=== PATIENT | female | born 1975 | race Caucasian/White ===

== ENCOUNTER 2017-07-17 03:06 | Inpatient (IN) | payer SELFPAY ==
[2017-07-17] MEDS ORDERED: NS 1,000 ML IV ONE ×2 (03:11→04:22)
[2017-07-17] MEDS ORDERED: ONDANSETRON 4 MG/2 ML VIAL IVP ONE (03:11)
[2017-07-17] MEDS ORDERED: HYDROmorphONE/DILAUDID 1 MG/ML INJ IVP ONE ×2 (03:11→05:01)
--- NOTE | 2017-07-17 03:19 | EDPHY ---
H & P Time Seen by Provider: 07/17/17 03:16 HPI/ROS: Chief Complaint: Abdominal pain HPI: This is a 41-year-old woman with a history of irritable bowel disease who is visiting from the . Patient started having abdominal pain about 9 hr ago. Does not have a history of similar pain in the past. It is generalized and severe. Is been associated with some nausea and vomiting. Patient is unable to provide me with any more history. She is writhing in pain and will not answer any more questions. ROS: Unobtainable as the patient is not answering questions PMH: Abdominal tumor removal at 3 months of age, irritable bowel disease Social History: Unknown Family History: non-contributory Physical Exam: Gen: Awake, Alert, writhing in pain, not answering questions HEENT: Nose: no rhinorrhea Eyes: PERRLA, EOMI Mouth: Moist mucosa Neck: Supple, no JVD Chest: nontender, lungs clear to auscultation Heart: S1, S2 normal, no murmur Abd: Large midline abdominal scar consistent with prior laparotomy, diffuse voluntary guarding, no distention Ext: no edema, non-tender Skin: no rash Neuro: CN II-XII intact, Sensation grossly intact, Strength 5/5 in bilateral upper and lower extremities Constitutional: Initial Vital Signs Temperature (C) 36.7 C 07/17/17 03:10 Heart Rate 83 07/17/17 03:10 Respiratory Rate 18 07/17/17 03:10 Blood Pressure 123/68 H 07/17/17 03:10 O2 Sat (%) 95 07/17/17 03:10 O2 Delivery Mode Room Air Allergies/Adverse Reactions: Penicillins Allergy (Verified 07/17/17 03:30) Home Medications: Medication Instructions Recorded Ambien 10 mg 07/17/17 DIAZEPAM 07/17/17 Hydrocodon-Acetaminophen 5-500 07/17/17 Ritalin 20mg (*) 07/17/17 Medical Decision Making - Diagnostics Imaging Results: CT scan consistent with small-bowel obstruction with a transition point in the mid right abdomen just below the umbilicus. There is a transition point just proximal to a decompressed ileum. Study interpreted by Dr. Ordonez. Imaging: Discussed imaging studies w/ rn call center Radiologist ED Course/Re-evaluation: 41-year-old woman present with severe onset of abdominal pain. She has a small bowel obstruction on CT scan. I have discussed with Dr. Meade, general surgery. He will admit the patient to his service for further care. I have ordered an NG tube. Will continue pain meds as needed. - Data Points Laboratory Results: Laboratory Results 07/17/17 03:08 07/17/17 03:08 07/17/17 07/17/17 07/17/17 04:43 03:08 03:08 WBC RBC Hgb Hct MCV MCH MCHC RDW Plt Count MPV Neut % (Auto) Lymph % (Auto) Loving % (Auto) Eos % (Auto) Baso % (Auto) Nucleat RBC Rel Count Absolute Neuts (auto) Absolute Lymphs (auto) Absolute Monos (auto) Absolute Eos (auto) Absolute Basos (auto) Absolute Nucleated RBC Immature Gran % Immature Gran # Sodium 142 mEq/L mEq/L (134-144) Potassium 3.7 mEq/L mEq/L (3.5-5.2) Chloride 101 mEq/L mEq/L (97-110) Carbon Dioxide 26 mEq/l mEq/l (22-31) Anion Gap 15 mEq/L mEq/L (8-16) BUN 19 mg/dL mg/dL (7-23) Creatinine 0.8 mg/dL mg/dL (0.6-1.0) Estimated GFR > 60 Glucose 118 mg/dL H mg/dL (70-100) Calcium 10.3 mg/dL mg/dL (8.5-10.4) Total Bilirubin 1.6 mg/dL H mg/dL (0.1-1.4) AST 25 IU/L IU/L (14-46) ALT 33 IU/L IU/L (9-52) Alkaline Phosphatase 68 IU/L IU/L (38-126) Total Protein 7.5 g/dL g/dL (6.3-8.2) Albumin 4.9 g/dL g/dL (3.5-5.0) Lipase 98 IU/L IU/L (23-300) Beta HCG, Qual NEGATIVE Urine Color YELLOW Urine Appearance HAZY Urine pH 8.0 H (5.0-7.5) Ur Specific [place] > 1.035 H (1.002-1.030) Urine Protein 1+ H (NEGATIVE) Urine Ketones 2+ H (NEGATIVE) Urine Blood NEGATIVE (NEGATIVE) Urine Nitrate NEGATIVE (NEGATIVE) Urine Bilirubin NEGATIVE (NEGATIVE) Urine Urobilinogen NEGATIVE EU EU (0.2-1.0) Ur Leukocyte Esterase NEGATIVE (NEGATIVE) Urine RBC Pending Urine WBC Pending Ur Epithelial Cells Pending Urine Glucose NEGATIVE (NEGATIVE) 07/17/17 03:08 WBC 11.07 10^3/uL H 10^3/uL (3.80-9.50) RBC 4.47 10^6/uL 10^6/uL (4.18-5.33) Hgb 14.7 g/dL g/dL (12.6-16.3) Hct 40.7 % % (38.0-47.0) MCV 91.1 fL fL (81.5-99.8) MCH 32.9 pg pg (27.9-34.1) MCHC 36.1 g/dL g/dL (32.4-36.7) RDW 12.0 % % (11.5-15.2) Plt Count 256 10^3/uL 10^3/uL (150-400) MPV 11.2 fL fL (8.7-11.7) Neut % (Auto) 76.2 % H % (39.3-74.2) Lymph % (Auto) 16.0 % % (15.0-45.0) Loving % (Auto) 6.5 % % (4.5-13.0) Eos % (Auto) 0.5 % L % (0.6-7.6) Baso % (Auto) 0.4 % % (0.3-1.7) Nucleat RBC Rel Count 0.0 % % (0.0-0.2) Absolute Neuts (auto) 8.44 10^3/uL H 10^3/uL (1.70-6.50) Absolute Lymphs (auto) 1.77 10^3/uL 10^3/uL (1.00-3.00) Absolute Monos (auto) 0.72 10^3/uL 10^3/uL (0.30-0.80) Absolute Eos (auto) 0.06 10^3/uL 10^3/uL (0.03-0.40) Absolute Basos (auto) 0.04 10^3/uL 10^3/uL (0.02-0.10) Absolute Nucleated RBC 0.00 10^3/uL 10^3/uL (0-0.01) Immature Gran % 0.4 % % (0.0-1.1) Immature Gran # 0.04 10^3/uL 10^3/uL (0.00-0.10) Sodium Potassium Chloride Carbon Dioxide Anion Gap BUN Creatinine Estimated GFR Glucose Calcium Total Bilirubin AST ALT Alkaline Phosphatase Total Protein Albumin Lipase Beta HCG, Qual Urine Color Urine Appearance Urine pH Ur Specific [place] Urine Protein Urine Ketones Urine Blood Urine Nitrate Urine Bilirubin Urine Urobilinogen Ur Leukocyte Esterase Urine RBC Urine WBC Ur Epithelial Cells Urine Glucose Medications Given: Discontinued Medications Hydromorphone HCl (Dilaudid) 1 mg IVP EDNOW ONE Stop: 07/17/17 03:12 Last Admin: 07/17/17 03:19 Dose: 1 mg Sodium Chloride (Ns) 1,000 mls @ 0 mls/hr IV ONCE ONE; Wide Open PRN Reason: Protocol Stop: 07/17/17 03:12 Last Admin: 07/17/17 03:18 Dose: 1,000 mls Sodium Chloride (Ns) 1,000 mls @ 0 mls/hr IV ONCE ONE PRN Reason: Wide Open Stop: 07/17/17 04:23 Last Admin: 07/17/17 04:30 Dose: 1,000 mls Ondansetron HCl (Zofran) 4 mg IVP EDNOW ONE Stop: 07/17/17 03:12 Last Admin: 07/17/17 03:20 Dose: 4 mg Departure - Departure Disposition: [facility] Acute Clinical Impression: Small bowel obstruction Condition: Fair Referrals: Patient,NotPresent [Primary Care Provider] - As per Instructions
[2017-07-17 03:29] LABS: % IMMATURE GRANULYOCYTES 0.4 % (0.0-1.1); ABSOLUTE IMMATURE GRANULOCYTES 0.04 10^3/uL (0.00-0.10); ADD DIFF? NO; ADD MORPH? NO; ADD SCAN? NO; ATYPICAL LYMPHOCYTE FLAG 0 (0-99); FRAGMENT RBC FLAG 0 (0-99); HEMATOCRIT 40.7 % (38.0-47.0); HEMOGLOBIN 14.7 g/dL (12.6-16.3); LEFT SHIFT FLG 0 (0-99); LIPEMIA HEMOLYSIS FLAG 90 (0-99); MEAN CELL HEMOGLOBIN 32.9 pg (27.9-34.1); MEAN CELL HEMOGLOBIN CONCENTR. 36.1 g/dL (32.4-36.7); MEAN CELL VOLUME 91.1 fL (81.5-99.8); MEAN PLATELET VOLUME 11.2 fL (8.7-11.7); PLATELET CLUMPS FLAG 20 (0-99); PLATELET COUNT 256 10^3/uL (150-400); RED BLOOD CELL COUNT 4.47 10^6/uL (4.18-5.33)
[2017-07-17 03:42] LABS: ALANINE AMINOTRANSFERASE 33 IU/L (9-52); ALBUMIN 4.9 g/dL (3.5-5.0); ALKALINE PHOSPHATASE 68 IU/L (38-126); ANION GAP 15 mEq/L (8-16); ASPARTATE AMINOTRANSFERASE 25 IU/L (14-46); BILIRUBIN,TOTAL 1.6 mg/dL (0.1-1.4); CALCIUM 10.3 mg/dL (8.5-10.4); CARBON DIOXIDE 26 mEq/l (22-31); CHLORIDE 101 mEq/L (97-110); CREATININE 0.8 mg/dL (0.6-1.0); GLOMERULAR FILTRATION RATE > 60; GLUCOSE 118 mg/dL (70-100); POTASSIUM 3.7 mEq/L (3.5-5.2); SODIUM 142 mEq/L (134-144); TOTAL PROTEIN 7.5 g/dL (6.3-8.2)
[2017-07-17] MEDS ORDERED: IOPAMIDOL (ISOVUE-300) 100 ML BTL ONE (03:59)
[2017-07-17 04:54] LABS: COLOR YELLOW; LEUKOCYTE ESTERASE,URINE NEGATIVE (NEGATIVE); NITRITE,URINE NEGATIVE (NEGATIVE)
[2017-07-17] MEDS ORDERED: BENZOCAINE UNIT DOSE SPRAY HURRICAINE MM ONE (04:56)
[2017-07-17] MEDS ORDERED: LIDOCAINE 2% VISCOUS 15 ML UDCUP PO ONE (04:56)
[2017-07-17 05:00] LABS: AMORPHOUS PRESENT /hpf (NONE-1+); MUCUS TRACE /lpf (NONE-1+)
[2017-07-17] MEDS ORDERED: ONDANSETRON 4 MG/2 ML VIAL IVP PRN (07:15)
[2017-07-17] MEDS: HYDROmorphONE/DILAUDID 1 MG/ML INJ IVP PRN ×6 (07:33→23:18)
[2017-07-17] MEDS: D5W 1/2 NS W/ 20 KCl/L 1,000 ML IV SCH (07:37)
[2017-07-17 08:08] LABS: % IMMATURE GRANULYOCYTES 0.2 % (0.0-1.1); ABSOLUTE IMMATURE GRANULOCYTES 0.02 10^3/uL (0.00-0.10); ADD DIFF? NO; ADD MORPH? NO; ADD SCAN? NO; ATYPICAL LYMPHOCYTE FLAG 0 (0-99); FRAGMENT RBC FLAG 0 (0-99); HEMATOCRIT 39.5 % (38.0-47.0); HEMOGLOBIN 13.7 g/dL (12.6-16.3); LEFT SHIFT FLG 0 (0-99); LIPEMIA HEMOLYSIS FLAG 90 (0-99); MEAN CELL HEMOGLOBIN 32.9 pg (27.9-34.1); MEAN CELL HEMOGLOBIN CONCENTR. 34.7 g/dL (32.4-36.7); MEAN CELL VOLUME 94.7 fL (81.5-99.8); MEAN PLATELET VOLUME 11.1 fL (8.7-11.7); PLATELET CLUMPS FLAG 0 (0-99); PLATELET COUNT 226 10^3/uL (150-400); RED BLOOD CELL COUNT 4.17 10^6/uL (4.18-5.33)
[2017-07-17 08:27] LABS: ALANINE AMINOTRANSFERASE 33 IU/L (9-52); ALBUMIN 3.8 g/dL (3.5-5.0); ALKALINE PHOSPHATASE 50 IU/L (38-126); AMYLASE 40 IU/L (30-110); ASPARTATE AMINOTRANSFERASE 22 IU/L (14-46); BILIRUBIN,TOTAL 1.3 mg/dL (0.1-1.4); BILIRUBIN-CONJUGATED 0.1 mg/dL (0.0-0.5); BILIRUBIN-UNCONJUGATED 1.2 mg/dL (0.0-1.1); TOTAL PROTEIN 6.3 g/dL (6.3-8.2)
--- NOTE | 2017-07-17 15:56 | ASMTCASEMG ---
Living Arrangements What is your living Answers: With Other Relative(s) arrangement? Who do you live with? Type Of Residence What kind of residence do Answers: House you live in? Discharge Plan Comments Coordination Status Comments Notes: Pt is a 41 y/o female admitted for abdominal pain. Pt has a hx of irritable bowel disease. Anticipates that pt will d/c independent when medically stable. No therapies ordered at this time. CM available for changes. Plan: Independent Date Signed: 07/17/2017 03:56 PM Electronically Signed By:CALLIE Lopez
[2017-07-17] MEDS: CEPACOL LOZENGE PO PRN ×5 (16:48→23:18)
[2017-07-18] MEDS: CEPACOL LOZENGE PO PRN ×2 (00:56→06:30)
[2017-07-18] MEDS: D5W 1/2 NS W/ 20 KCl/L 1,000 ML IV SCH (01:59)
[2017-07-18] MEDS: HYDROmorphONE/DILAUDID 1 MG/ML INJ IVP PRN (09:11)
--- NOTE | 2017-07-18 09:21 | SOAPPROG ---
SOAP Progress Note Assessment/Plan: Assessment: SBFT OK BUT SLOW TRANSIT/ ABD SOFT/ TOLERATED NG CLAMPED Plan:CHECK 2-WAY/ PROBABLY DC NG 07/18/17 09:19 Objective: Vital Signs Temp Pulse Resp BP Pulse Ox 37.1 C 84 17 116/65 96 07/18/17 08:55 07/18/17 08:55 07/18/17 08:55 07/18/17 08:55 07/18/17 08:55 Laboratory Results 07/17/17 07:52 07/17/17 07/18/17 07/19/17 05:59 05:59 05:59 Intake Total 2840 1730 Output Total 250 Balance 2590 1730 ICD10 Worksheet Patient Problems: Problems Problem Status Onset Small bowel obstruction Acute
[2017-07-18 15:13] VITALS: BP 102/59; PULSE 90; RESP 17; TEMP 98.6; O2SAT 98
--- NOTE | 2017-07-19 09:51 | ASDISCHSUM ---
Discharge Information Plan Status: Medically Cleared to Leave: Discharge Date:07/18/2017 08:06 PM D/C Disposition: ADT D/C Disposition:Home, Routine, Self-Care Projected Discharge Date:07/18/2017 11:54 AM Transportation at D/C: Discharge Delay Reason: Follow-Up Date:07/18/2017 11:54 AM Discharge Slot: Final Diagnosis: Placement Information Patient Contact Information Contact Name:ANUEL Relationship:Mother Address:[address] Work Phone: City:[facility] [place] Phone: State/Zip Code:[place] [address] Email: Financial Information Financial Class:Self-Pay Primary Plan Desc:SELF PAY Primary Plan Number: Secondary Plan Desc: Secondary Plan Number: Assessment Information [facility] Initial CM Assessment Living Arrangements What is your living Answers: With Other Relative(s) arrangement? Who do you live with? Type Of Residence What kind of residence do Answers: House you live in? Discharge Plan Comments Coordination Status Comments Notes: Pt is a 41 y/o female admitted for abdominal pain. Pt has a hx of irritable bowel disease. Anticipates that pt will d/c independent when medically stable. No therapies ordered at this time. CM available for changes. Plan: Independent Date Signed: 07/17/2017 03:56 PM Electronically Signed By:CALLIE Lopez Intervention Information
--- NOTE | 2017-07-19 22:58 | GDS ---
[f rep st] DISCHARGE SUMMARY REASON FOR ADMISSION: Small bowel obstruction. HOSPITAL COURSE: The patient is a 41-year-old female with a history of irritable bowel disease who i s visiting [place], developed abdominal pain, and came to the emergency department. CT scan was con sistent with small bowel obstruction with a transition point. The patient did have a history of abdo kirt tumor removal at 3 months of age, as well as the above-mentioned irritable bowel disease. With nasogastric treatment and bowel rest, the patient did improve. She underwent a small bowel followth rough later in the day, and there was some delayed transit time but no evidence of melani obstruction. She was tolerating a regular diet and pain-free at the time of discharge. She was given instructions to return to the emergency department if she developed any nausea, vomiting, or pain, and she should follow up with Dr. Meade in approximately 10 days. /[id number]/MODL
== END 2017-07-18 20:06 | disposition home or self-care (01) | DRG 390 ==
LOC: F1N 06:09
PROVIDERS: ADMIT Surgery; ATTEND Surgery
DX: K56.609 Unspecified intestinal obstruction, unspecified as to partial versus complete obstruction (principal)
CPT/HCPCS: 96374; J1170; J2405; Q9967